=== PATIENT | male | born 1965 | race Caucasian/White ===

== ENCOUNTER 2016-06-13 17:30 | Emergency (ER) | payer OTHER ==
[2016-06-13 17:36] VITALS: TEMP 97.9; BMI 32.5
--- NOTE | 2016-06-13 17:46 | PDOC ---
[id number] No Limitations - History of Present Illness Initial Comments: 06/13/16 18:21 The patient is a 51 year old male, with significant past medical history of multiple left shoulder dislocations, who presents today after dislocating his left shoulder s/p falling off of a ladder 15 min ago. The patient states that he was on the top rung of the extension ladder when he fell. The ladder was not locked into position and slid down to the ground. Denies head trauma or any other trauma. Allergies: none reported <Sandrita Pak - Last Filed: 06/13/16 18:21> <Concepcion Meraz - Last Filed: 06/16/16 12:07> - General Chief Complaint: Shoulder Dislocation Stated Complaint: LEFT SHOULDER DISLOCATION Time Seen by Provider: 06/13/16 17:38 Past History <Sandrita Pak - Last Filed: 06/13/16 18:21> - Past Medical History Asthma: Yes - Immunization History Immunization Up to Date: No - Psycho/Social/Smoking Cessation Hx Anxiety: No Suicidal Ideation: No Smoking Status: No Smoking History: Never smoked Have you smoked in the past 12 months: No Number of Cigarettes Smoked Daily: 0 Information on smoking cessation initiated: No Hx Alcohol Use: No Drug/Substance Use Hx: No Substance Use Type: None <Concepcion Meraz - Last Filed: 06/16/16 12:07> - Past Medical History Allergies/Adverse Reactions: Allergies Allergy/AdvReac Type Severity Reaction Status Date / Time No Known Allergies Allergy Verified 06/13/16 17:31 Home Medications: Ambulatory Orders No Home Medications 0 dose .ROUTE UTDICT 11/19/12 Review of Systems - Review of Systems Comments:: 06/13/16 18:21 GENERAL/CONSTITUTIONAL: No fever or chills. No weakness. HEAD, EYES, EARS, NOSE AND THROAT: No change in vision. No ear pain or discharge. No sore throat. CARDIOVASCULAR: No chest pain or shortness of breath. RESPIRATORY: No cough, wheezing, or hemoptysis. GASTROINTESTINAL: No nausea, vomiting, diarrhea or constipation. GENITOURINARY: No dysuria, frequency, or change in urination. MUSCULOSKELETAL: Yes: left shoulder dislocation. No joint or muscle swelling or pain. No neck or back pain. SKIN: No rash NEUROLOGIC: No headache, vertigo, loss of consciousness, or change in strength/ sensation. ENDOCRINE: No increased thirst. No abnormal weight change. HEMATOLOGIC/LYMPHATIC: No anemia, easy bleeding, or history of blood clots. ALLERGIC/IMMUNOLOGIC: No hives or skin allergy. <Sandrita Pak - Last Filed: 06/13/16 18:21> *Physical Exam - Vital Signs Last Vital Signs Temp Pulse Resp BP Pulse Ox 97.9 F 121 H 18 136/98 98 06/13/16 17:33 06/13/16 17:33 06/13/16 17:33 06/13/16 17:33 06/13/16 17:33 <Sandrita Pak - Last Filed: 06/13/16 18:21> - Vital Signs Last Vital Signs Temp Pulse Resp BP Pulse Ox 97.9 F 121 H 18 136/98 98 06/13/16 17:33 06/13/16 17:33 06/13/16 17:33 06/13/16 17:33 06/13/16 17:33 - Physical Exam Comments: GENERAL: Awake, alert, and fully oriented. Appears uncomfortable. HEAD: No signs of trauma EYES: PERRLA, EOMI, sclera anicteric, conjunctiva clear ENT: Auricles normal inspection, hearing grossly normal, nares patent, oropharynx clear without exudates. Moist mucosa NECK: Normal ROM, supple, no lymphadenopathy, JVD, or masses EXTREMITIES: L shoulder with obvious deformity, unable to range due to pain. Distal N/V intact. Remainder of extremities with normal range of motion, no edema. No clubbing or cyanosis. No cords, erythema, or tenderness NEUROLOGICAL: Cranial nerves II through XII grossly intact. Normal speech, normal gait. Motor and sensation intact. SKIN: Warm, Dry, normal turgor, no rashes. +Swelling to R anterior owens with small puncture in the skin. <Concepcion Meraz - Last Filed: 06/16/16 12:07> Procedures - Joint Reduction Left Joint Reduction Site: left: Posterior Dislocation Pre-Procedure NV Exam: normal Conscious Sedation: Yes (propofol) Procedure: Other (slight abduction with internal rotation) Complications: No Post Joint Reduction Film: joint reduced Immobilized: Yes <Concepcion Meraz - Last Filed: 06/16/16 12:07> Medical Decision Making - Medical Decision Making Shoulder was reduced under conscious sedation. Of note, patient required large doses of propofol for adequate sedation. However, once adequate sedation was obtained, the shoulder was easily reduced. Endorsed to Dr. Bradshaw- post- sedation monitoring, post-reduction XR. <Concepcion Meraz - Last Filed: 06/16/16 12:07> *DC/Admit/Observation/Transfer - Attestations Scribe Attestion: 06/13/16 18:22 Documentation prepared by JAM Clark, acting as medical technologist blood bank for Concepcion Meraz MD. <Sandrita Pak - Last Filed: 06/13/16 18:21> - Discharge Dispostion Admit: No <Concepcion Meraz - Last Filed: 06/16/16 12:07> Diagnosis at time of Disposition: Recurrent dislocation of shoulder region - Discharge Dispostion Disposition: HOME Condition at time of disposition: Fair - Referrals Referrals: Woodrow Alvarado MD [Staff Physician] - - Patient Instructions Printed Discharge Instructions: DI for Shoulder Dislocation Additional Instructions: Wear the sling in tell you are followed up and seen by an orthopedist. For pain take ibuprofen or Tylenol, Return to the emergency department immediately with ANY new, persistent or worsening symptoms. Continue any medications as previously prescribed by your physician. You should follow up with your primary doctor as soon as possible regarding today's emergency department visit. . Please make sure your doctor reviews the results of your emergency evaluation. Thank you for coming to the Emergency Department today for your care. It was a pleasure to see you today. Please note that your evaluation is INCOMPLETE until you follow-up with your doctor.
[2016-06-13] MEDS ORDERED: morphine CARPU-JECT 4 MG/1 ML DISP.SYRIN IVPUSH ONE (18:03)
[2016-06-13] MEDS ORDERED: PROPOFOL 200 MG/20 ML VIAL IVPUSH ONE ×2 (18:23→18:40)
[2016-06-13] MEDS: PROPOFOL 200 MG/20 ML VIAL IVPUSH ONE ×2 (18:40→20:23)
--- NOTE | 2016-06-13 19:46 | PDOC ---
*Physical Exam - Vital Signs Last Vital Signs Temp Pulse Resp BP Pulse Ox 97.9 F 121 H 18 136/98 98 06/13/16 17:33 06/13/16 17:33 06/13/16 17:33 06/13/16 17:33 06/13/16 17:33 Progress Note - Progress Note Progress Note: Care of this patient was transferred to me from Dr. Meraz at 1900 hrs. This is a 51-year-old male who has had frequent shoulder dislocations. The patient's last dislocation was relocated by me here in the emergency room. This is a patient that requires high levels of sedation in order to relocate his shoulder. I was present during the medicating and relocation of the shoulder by Dr. Meraz. Patient has a superficial laceration and contusion to his anterior tibia area Laceration was cleaned and then closed with Dermabond X-ray post shoulder reduction: Shows the proximal humerus is in good position. , There is a Farr-Sacks deformity that was present prior to relocation but is now more pronounced than it was in the prereduction x-rays. There is no associated anesthesia over the lateral shoulder. Assessment and plan: This is a 51-year-old male with frequent dislocation of his left shoulder. Patient has not had repair of the rotator cuff as result of the frequent dislocations. Hence he continues to dislocate it on occasion. Patient shoulder was successfully reduced however there was a worsening of his Farr-Sacks deformity as result of this reduction. There was no associated neuro loss. Patient was put in a sling and will follow-up with his orthopedist. *DC/Admit/Observation/Transfer Diagnosis at time of Disposition: Recurrent dislocation of shoulder region - Discharge Dispostion Disposition: HOME Condition at time of disposition: Fair - Referrals Referrals: Woodrow Alvarado MD [Staff Physician] - - Patient Instructions Printed Discharge Instructions: DI for Shoulder Dislocation Additional Instructions: Wear the sling in tell you are followed up and seen by an orthopedist. For pain take ibuprofen or Tylenol, Return to the emergency department immediately with ANY new, persistent or worsening symptoms. Continue any medications as previously prescribed by your physician. You should follow up with your primary doctor as soon as possible regarding today's emergency department visit. . Please make sure your doctor reviews the results of your emergency evaluation. Thank you for coming to the Emergency Department today for your care. It was a pleasure to see you today. Please note that your evaluation is INCOMPLETE until you follow-up with your doctor. - Post Discharge Activity
[2016-06-13 20:06] VITALS: BP 121/79; PULSE 95
--- NOTE | 2016-06-14 07:52 | PDOC ---
Patient Follow-up (Call Back) - Post ED Follow - Up Condition at time of discharge: Fair Disposition at time of original discharge: HOME Reason for Call Back: Radiology (Called by radiology this morning to report an abnormal appearing lucency in the right tibia not documented in the report yesterday. I called the patient on his cell phone at [phone] and left a message to call back the ED today.) - Disposition Rx Needed: No
== END 2016-06-13 20:26 | disposition home or self-care (01) ==
LOC: FER 17:30
PROC: 0RSKXZZ Reposition Left Shoulder Joint, External Approach (ICD-10-PCS; principal; 2016-06-13)
DX: M24.412 Recurrent dislocation, left shoulder (principal); J45.909 Unspecified asthma, uncomplicated; W11.XXXA Fall on and from ladder, initial encounter; Y93.9 Activity, unspecified; Y92.9 Unspecified place or not applicable
CPT/HCPCS: 73030-TC-LT; 73590-TC-RT; 99283-25

== ENCOUNTER 2017-01-02 18:15 | Emergency (ER) | payer OTHER ==
[2017-01-02 18:21] VITALS: TEMP 97.8; BMI 35.2
[2017-01-02] MEDS ORDERED: morphine CARPU-JECT 4 MG/1 ML DISP.SYRIN IVPUSH ONE (18:30)
--- NOTE | 2017-01-02 18:33 | PDOC ---
History of Present Illness - General Chief Complaint: Injury Stated Complaint: LEFT SHOULDER INJURY Time Seen by Provider: 01/02/17 18:29 History Source: Patient Exam Limitations: No Limitations - History of Present Illness Initial Comments: 01/02/17 18:31 CHIEF COMPLAINT: 30 minutes of left shoulder dislocation HISTORY OF PRESENT ILLNESS: Patient is a 51-year-old man with a history of recurrent left shoulder dislocation. He has been to the emergency room at least 7 times for shoulder reduction. He is followed by Dr. Woodrow Alvarado, orthopedic surgeon, who has recommended shoulder surgery. He has not yet agreed to shoulder surgery. Today he was walking his dog when he reached out for the leash and his left shoulder came out. There was no fall or other trauma. He is currently complaining of severe left shoulder pain, increased with minimal movement. REVIEW OF SYSTEMS: No fever or chills No falls Positive left shoulder pain No other joint pain or injuries Past History - Past Medical History Allergies/Adverse Reactions: Allergies Allergy/AdvReac Type Severity Reaction Status Date / Time No Known Allergies Allergy Verified 01/02/17 18:18 Home Medications: Ambulatory Orders No Home Medications 0 dose .ROUTE UTDICT 11/19/12 Asthma: Yes (mild, seasonal) Diabetes: No HTN: No - Immunization History Immunization Up to Date: No - Suicide/Smoking/Psychosocial Hx Smoking Status: No Smoking History: Never smoked Have you smoked in the past 12 months: No Number of Cigarettes Smoked Daily: 0 Information on smoking cessation initiated: No Hx Alcohol Use: Yes (social, drinks wine nightly) Drug/Substance Use Hx: No Substance Use Type: None *Physical Exam - Vital Signs Last Vital Signs Temp Pulse Resp BP Pulse Ox 97.8 F 89 20 159/77 99 01/02/17 18:15 01/02/17 18:15 01/02/17 18:15 01/02/17 18:15 01/02/17 18:15 - Physical Exam Comments: 01/02/17 18:32 GENERAL: The patient is awake, alert, and fully oriented. He appears to have left shoulder discomfort and is holding his left arm in a splinted position. There is visible asymmetry of the left shoulder in comparison with the right. HEAD: Normal with no signs of trauma. EYES: Pupils equal, round and reactive to light, extraocular movements intact, sclera anicteric, conjunctiva clear. EXTREMITIES: The left glenohumeral socket demonstrates misalignment. Neurovascular examination of the left upper extremity is normal. NEUROLOGICAL: Normal speech, normal gait. PSYCH: Normal mood, normal affect. SKIN: Warm, Dry, normal turgor, no rashes or lesions noted. ED Treatment Course - RADIOLOGY Radiology Studies Ordered: Category Date Time Status SHOULDER-LEFT [RAD] Stat Radiology 01/02/17 18:29 Ordered Medical Decision Making - Medical Decision Making 01/02/17 19:00 51-year-old man with recurrent left shoulder dislocation presents with another left shoulder dislocation after reaching for the dog leash. On examination there is clearly a deformity in the left shoulder. There is no sensory or motor deficit. Pulses are normal. Patient sent for x-ray of the left shoulder. Patient given IV morphine sulfate 4 mg for pain control. At 7 PM, patient endorsed to Dr. Lizbeth Vences. She will review the x -rays and make a plan for further treatment of the left shoulder dislocation once the x-rays are completed. *DC/Admit/Observation/Transfer Diagnosis at time of Disposition: Recurrent dislocation of left shoulder
[2017-01-02] MEDS ORDERED: PROPOFOL 100 ML ONE (19:04)
--- NOTE | 2017-01-02 19:27 | PDOC ---
*Physical Exam - Vital Signs Last Vital Signs Temp Pulse Resp BP Pulse Ox 97.8 F 98 H 20 149/75 98 01/02/17 18:15 01/02/17 18:57 01/02/17 18:57 01/02/17 18:57 01/02/17 18:57 ED Treatment Course - Medications Given in the ED: ED Medications Discontinued Medications Generic Name Dose Route Start Last Admin Trade Name Kath PRN Reason Stop Dose Admin Morphine Sulfate 4 mg 01/02/17 18:30 01/02/17 18:37 Morphine Injection - IVPUSH 01/02/17 18:31 4 mg ONCE ONE Administration Progress Note - Progress Note Progress Note: Care of this patient was transferred to me from Dr. Murdock at 1900 hrs. This is a 51-year-old male who comes in complaining of shoulder dislocation. Patient has a history of shoulders recurrent left shoulder dislocation in the past. Patient was walking his dog when his left shoulder spontaneously this located. This is the fourth time that I seen this patient for shoulder dislocation. Patient requires high doses of propofol to relocate his shoulder. Patient was consented for both the procedure and of moderate sedation. Patient was placed on a monitor and oxygen nonrebreather throughout the procedure. Patient was given 200 mg of propofol IV push by myself. Shoulder was relocated by manual manipulation without difficulty. Immediately post relocation of the shoulder patient's O2 sat remained 100% and his blood pressure was 130 systolic Patient was placed in a sling. Patient remained stable throughout the procedure. Postreduction films show good reduction. Patient placed in sling and discharged will follow-up with his orthopedist. *DC/Admit/Observation/Transfer Diagnosis at time of Disposition: Recurrent dislocation, left shoulder - Discharge Dispostion Disposition: HOME Admit: No - Patient Instructions Additional Instructions: Wear your sling. Tylenol or Motrin as needed for pain. Follow-up with your orthopedist this week. Return to the emergency department immediately with ANY new, persistent or worsening symptoms. Continue any medications as previously prescribed by your physician. You should follow up with your primary doctor as soon as possible regarding today's emergency department visit. . Please make sure your doctor reviews the results of your emergency evaluation. Thank you for coming to the Emergency Department today for your care. It was a pleasure to see you today. Please note that your evaluation is INCOMPLETE until you follow-up with your doctor.
[2017-01-02] MEDS ORDERED: PROPOFOL 200 MG/20 ML VIAL IVPUSH ONE (20:47)
[2017-01-02 21:14] VITALS: BP 128/77; PULSE 79
== END 2017-01-02 21:14 | disposition home or self-care (01) ==
LOC: FER 18:15
PROC: 0RSKXZZ Reposition Left Shoulder Joint, External Approach (ICD-10-PCS; principal; 2017-01-02)
PROC: 3E033NZ Introduction of Analgesics, Hypnotics, Sedatives into Peripheral Vein, Percutaneous Approach (ICD-10-PCS; 2017-01-02)
DX: M24.412 Recurrent dislocation, left shoulder (principal); X58.XXXA Exposure to other specified factors, initial encounter; Y93.89 Activity, other specified; Y92.9 Unspecified place or not applicable
CPT/HCPCS: 73030-TC-LT; 99284-25

== ENCOUNTER 2019-12-01 16:12 | Emergency (ER) | payer OTHER ==
--- NOTE | 2019-12-01 16:22 | PDOC ---
History of Present Illness - General Chief Complaint: Injury Stated Complaint: RIGHT LOWER EXTREMITY LACERATION X ~ 1 WK Time Seen by Provider: 12/01/19 16:22 - History of Present Illness Initial Comments: 54 YOM no significant pmh presents with right anterior leg laceration since one week. Patient reports that one week prior to arrival he cut his leg with glass while taking out garbage at home. He presents to the ED for continued pain at the wound site and concern that it may be infected given that it is still painful and draining fluid. Is uncertain of last tetanus. Denies fever, chills, nausea, vomiting, chest pain, shortness of breath, or recent sick contact. Past History - Medical History Allergies/Adverse Reactions: Allergies Allergy/AdvReac Type Severity Reaction Status Date / Time No Known Allergies Allergy Verified 12/01/19 16:14 Home Medications: Ambulatory Orders Cholecalciferol (Vitamin D3) [Vitamin D3] 5,000 unit PO DAILY 12/01/19 Clindamycin [Cleocin -] 300 mg PO TID #21 capsule 12/01/19 Flaxseed Oil [Flaxseed] 1,000 mg PO DAILY 12/01/19 Multivitamin [Multivitamins] 1 each PO DAILY 12/01/19 Asthma: Yes (mild, seasonal) Diabetes: No HTN: No - Immunization History Immunization Up to Date: No - Psycho-Social/Smoking History Smoking Status: No Smoking History: Never smoked Have you smoked in the past 12 months: No Number of Cigarettes Smoked Daily: 0 Review of Systems - Review of Systems Constitutional: Yes: See HPI HEENTM: Yes: See HPI Respiratory: Yes: See HPI Cardiac (ROS): Yes: See HPI ABD/GI: Yes: See HPI : Yes: See HPI Musculoskeletal: Yes: See HPI Integumentary: Yes: See HPI Neurological: Yes: See HPI Endocrine: Yes: See HPI Hematologic/Lymphatic: Yes: See HPI *Physical Exam - Physical Exam General Appearance: Yes: Nourished, Appropriately Dressed Respiratory/Chest: positive: Lungs Clear, Normal Breath Sounds Cardiovascular: positive: Regular Rhythm, Regular Rate, S1, S2 Gastrointestinal/Abdominal: positive: Normal Bowel Sounds, Flat, Soft Extremity: positive: Other (3 cm by 2 mm lacteration on anterior lower right leg, draining pus, no surrounding erythema) Medical Decision Making - Medical Decision Making 54 YOM with 3cm laceration on anterior right lower leg draining pus, afebrile. - vitals wnl - exam shows wound with granulation draining small amt of pus, no surrounding erythema - will irrigate and dress wound and give clindamycin for abx - can dc to home with prescription for clinda and instructions for wound care Discharge - Discharge Information Problems reviewed: Yes Clinical Impression/Diagnosis: Cellulitis Qualifiers: Site of cellulitis: extremity Site of cellulitis of extremity: lower extremity Laterality: right Qualified Code(s): L03.115 - Cellulitis of right lower limb Condition: Stable - Admission No - Additional Discharge Information Prescriptions: Clindamycin [Cleocin -] 300 mg PO TID #21 capsule - Follow up/Referral Referrals: Mauricio Squires MD [Primary Care Provider] - - Patient Discharge Instructions Patient Printed Discharge Instructions: Cellulitis Additional Instructions: Take clindamycin as prescribed take with an [id number] probiotic. Apply bacitracin twice a day keep covered. Check wound each day. Return to emergency department immediately for any worsening pain redness that is spreading fever streaking red lines or for any concerns. Follow-up with your doctor this week. - Post Discharge Activity
[2019-12-01 16:25] VITALS: BP 104/61; PULSE 80; TEMP 98.6; BMI 27.3
[2019-12-01] MEDS ORDERED: CLINDAMYCIN HCL 300 MG CAPSULE PO ONE (16:38)
[2019-12-01] MEDS ORDERED: CLINDAMYCIN HCL 150 MG CAPSULE (FP) ONE (16:54)
--- NOTE | 2019-12-01 17:38 | PDOC ---
Attending Attestation - Resident Resident Name: Bin Cooper - ED Attending Attestation I have performed the following: I have examined & evaluated the patient, The case was reviewed & discussed with the resident, I agree w/resident's findings & plan, Exceptions are as noted - HPI HPI: 12/01/19 17:20 =[0 12/01/19 17:41 54 years old with no past medical history status post cutting his right lower extremity owens on a piece of glass last week. Last Tuesday cut right lower extremity with garbage bag and piece of glass tetanus is up-to-date initially healing well now small amount of pus with pain to site Symptoms are mild to moderate persistent constant no exacerbating relieving factors no fever no chills no chest pain no shortness of breath - Physicial Exam PE: 12/01/19 17:42 Vitals: Triage Vital signs reviewed General Appearance: No acute distress, well nourished well developed, Head: Atraumatic, Extremities: Full range of motion to all extremities, no cyanosis, clubbing, or edema Skin: 4 cm laceration to right lower extremity 1 week and age small amount of pus. Neuro: AOX3; cranial Nerves 2-12 grossly intact, strength intact to all extremities, sensation intact to all extremities, gait normal Psych: Normal mood, normal affect - Medical Decision Making Laceration foreign 1 week ago with superficial infection will treat with 7-day course of clindamycin wound check in 2 days No evidence of foreign body on x-ray Findings, need for follow-up and strict return instructions discussed with patient Discharge - Discharge Information Problems reviewed: Yes Clinical Impression/Diagnosis: Cellulitis Qualifiers: Site of cellulitis: extremity Site of cellulitis of extremity: lower extremity Laterality: right Qualified Code(s): L03.115 - Cellulitis of right lower limb Condition: Stable - Admission No - Follow up/Referral Referrals: Mauricio Squires MD [Primary Care Provider] - - Patient Discharge Instructions Patient Printed Discharge Instructions: Cellulitis Additional Instructions: Take clindamycin as prescribed take with an [id number] probiotic. Apply bacitracin twice a day keep covered. Check wound each day. Return to emergency department immediately for any worsening pain redness that is spreading fever streaking red lines or for any concerns. Follow-up with your doctor this week. - Post Discharge Activity
== END 2019-12-01 17:53 ==
LOC: FER 16:12
DX: L03.115 Cellulitis of right lower limb (principal)
CPT/HCPCS: 73590-TC-RT-FY; 99284-25

== ENCOUNTER 2021-04-29 09:35 | Day surgery (SDC) | payer OTHER ==
[2021-04-28 11:59] VITALS: BMI 24.9
[2021-04-29] MEDS ORDERED: PROPOFOL 20 ML ONE ×2 (10:17)
[2021-04-29] MEDS ORDERED: GLYCOPYRROLATE 0.2 MG/1 ML VIAL ONE (10:17)
[2021-04-29] MEDS ORDERED: ONDANSETRON 4 MG/2 ML VIAL ONE (10:17)
[2021-04-29 11:22] VITALS: TEMP 97.4
[2021-04-29 11:53] VITALS: BP 121/71; PULSE 61
== END 2021-04-29 12:01 | disposition home or self-care (01) ==
LOC: FASU-ENDO 09:35
PROVIDERS: ATTEND Internal Medicine Gastroenterology
PROC: 0DJD8ZZ Inspection of Lower Intestinal Tract, Via Natural or Artificial Opening Endoscopic (ICD-10-PCS; principal; 2021-04-29 10:52)
DX: Z12.11 Encounter for screening for malignant neoplasm of colon (principal); K64.2 Third degree hemorrhoids